=== PATIENT | female | born 1975 | race Caucasian/White ===

== ENCOUNTER → 2017-02-03 | Outpatient (CLI) | payer BC ==
[~2017-02-03] MED LIST: IUD; MOTRIN800 MG PO; NKHM
== END | disposition home or self-care (01) ==
LOC: MRI 10:59
DX: R51 Headache (principal)

== ENCOUNTER → 2020-07-16 | Outpatient (CLI) | payer SELFPAY | END | disposition home or self-care (01) | LOC: COVID19 13:09 | PROVIDERS: ATTEND Student in an Organized Health Care Education/Training Program | DX: Z20.828 Contact with and (suspected) exposure to other viral communicable diseases (principal) ==

== ENCOUNTER 2023-08-21 08:54 | Emergency (ER) | payer OTHER ==
[~2023-08-21] VITALS: Ht 167.6 cm; Wt 65.8 kg
[2023-08-21] MEDS ORDERED: Ondansetron Hydrochloride 4 MG TAB SL ONE (09:45)
[2023-08-21] MEDS ORDERED: Ketorolac Tromethamine 60 MG/2 ML VIAL IM ONE (09:45)
[2023-08-21 10:14] LABS: BILIRUBIN Negative (Negative); BLOOD 1+ (Negative); CLARITY Cloudy (Clear); COLOR Yellow (Yellow); GLUCOSE Negative (Negative); KETONE 3+ (Negative); LEUKO ESTERASE Negative (Negative); NITRITE Negative (Negative); PH 5.5 (4.5-8.0); SPECIFIC GRAVITY >= 1.030 (1.001-1.030); UROBILINOGEN 0.2 E.U./dl (0.0-1.0)
[2023-08-21 10:27] LABS: BACTERIA 3+; EPITHELIAL CELLS 21-30; MUCOUS 2+
[2023-08-21] MEDS ORDERED: ONDANSETRON4 MG SL (10:32)
[2023-08-21] MEDS ORDERED: OMNICEF300 MG PO (10:32)
== END 2023-08-21 10:48 | disposition home or self-care (01) ==
LOC: ED 08:54
PROVIDERS: Internal Medicine
DX: N39.0 Urinary tract infection, site not specified (principal); T36.0X5A Adverse effect of penicillins, initial encounter; Z20.822 Contact with and (suspected) exposure to COVID-19; M54.50 Low back pain, unspecified; T36.1X5A Adverse effect of cephalosporins and other beta-lactam antibiotics, initial encounter; J02.9 Acute pharyngitis, unspecified; R51.9 Headache, unspecified; R11.0 Nausea; Z88.2 Allergy status to sulfonamides; Z97.5 Presence of (intrauterine) contraceptive device; Y92.89 Other specified places as the place of occurrence of the external cause